=== PATIENT | male | born 1990 | race Two or more races ===

== ENCOUNTER 2019-05-03 12:52 | Emergency (ER) | payer OTHER ==
[~2019-05-03] VITALS: Ht 188 cm; Wt 158.8 kg
== END 2019-05-03 18:02 | disposition home or self-care (01) ==
LOC: ER 12:52
DX: J32.8 Other chronic sinusitis (principal)

== ENCOUNTER 2023-05-26 22:47 | Emergency (ER) | payer OTHER ==
[~2023-05-26] VITALS: Ht 167.6 cm; Wt 131.5 kg
[2023-05-27 00:32] LABS: HEMATOCRIT 40.9 % (39.0-48.0); HEMOGLOBIN 13.9 g/dL (13-16.00); MEAN CORPUSCULAR HEMOGLOBIN 28.9 pg (27.00-32.0); PLATELET COUNT 253 K/uL (150-450); RED BLOOD COUNT 4.81 M/uL (4.00-6.00); RED CELL DISTRIBUTION WIDTH 13.7 % (11.5-14.5)
[2023-05-27 00:47] LABS: INR 1.02; PARTIAL THROMBOPLASTIN TIME 25.8 SECONDS (22.0-34.0); PROTHROMBIN TIME 10.7 SECONDS (9.0-11.5)
== END 2023-05-27 00:23 | disposition home or self-care (01) ==
LOC: ER 22:47
PROVIDERS: General Practice
DX: I83.891 Varicose veins of right lower extremity with other complications (principal)